=== PATIENT | male | born 1985 | race American Indian/Alaskan Native ===

== ENCOUNTER 2018-08-10 00:31 | Emergency (ER) | payer MEDICAID, OTHER ==
--- NOTE | 2018-08-10 04:22 | C.PDOC ---
History Of Present Illness 33 year old male presents to the ED for evaluation. Patient reports he recently lost his aunt is feeling depressed and wants someone to talk to. Patient denies SI/HI, hallucinations, other medical complaints. Time Seen by Provider: 08/10/18 03:10 Chief Complaint (Nursing): Psychiatric Evaluation History Per: Patient History/Exam Limitations: no limitations Onset/Duration Of Symptoms: Hrs Current Symptoms Are (Timing): Still Present Suicide/Self Injury Attempted (Context): None Associated Symptoms: Depression. denies: Suicidal Thoughts, Suicidal Plan Recent travel outside of the [place]: No Additional History Per: Patient Past Medical History Reviewed: Historical Data, Nursing Documentation, Vital Signs Vital Signs: Last Vital Signs Temp 99.3 F 08/10/18 00:46 Pulse 101 H 08/10/18 00:46 Resp 22 08/10/18 00:46 BP 157/91 H 08/10/18 00:46 Pulse Ox 98 08/10/18 00:46 - Medical History PMH: No Chronic Diseases Surgical History: No Surg Hx Family History: States: Unknown Family Hx - Social History Hx Alcohol Use: No Hx Substance Use: Yes - Immunization History Hx Tetanus Toxoid Vaccination: No Hx Influenza Vaccination: No Hx Pneumococcal Vaccination: No Review Of Systems Constitutional: Negative for: Fever, Chills Cardiovascular: Negative for: Chest Pain Respiratory: Negative for: Shortness of Breath Gastrointestinal: Negative for: Nausea, Vomiting, Abdominal Pain Skin: Negative for: Rash Neurological: Negative for: Weakness, Numbness Psych: Positive for: Depression. Negative for: Suicidal ideation Physical Exam - Physical Exam Appears: Non-toxic, No Acute Distress Skin: Warm, Dry Head: Normacephalic Eye(s): bilateral: Normal Inspection Neck: Supple Chest: Symmetrical Cardiovascular: Rhythm Regular Respiratory: No Rales, No Rhonchi, No Wheezing Gastrointestinal/Abdominal: Soft, No Tenderness, No Guarding, No Rebound Extremity: Bilateral: Atraumatic, Normal Color And Temperature, Normal ROM Neurological/Psych: Oriented x3, Normal Speech, Normal Cognition Gait: Steady ED Course And Treatment O2 Sat by Pulse Oximetry: 98 (ON RA) Pulse Ox Interpretation: Normal Progress Note: Patient was cleared for discharge by dr whitfield Reevaluation Time: 05:27 Reassessment Condition: Improved Disposition Counseled Patient/Family Regarding: Studies Performed, Diagnosis, Need For Followup - Disposition Disposition: HOME/ ROUTINE Disposition Time: 04:28 Condition: FAIR Instructions: Depression, Adult (DC) Forms: [email or web address] (Ukrainian) - Clinical Impression Clinical Impression: Depression - Scribe Statement The provider has reviewed the documentation as recorded by the Scribe Chester Lazo All medical record entries made by the Scribe were at my direction and personally dictated by me. I have reviewed the chart and agree that the record accurately reflects my personal performance of the history, physical exam, medical decision making, and the department course for this patient. I have also personally directed, reviewed, and agree with the discharge instructions and disposition.
[2018-08-10 05:13] VITALS: BP 149/89; PULSE 78; RESP 16; TEMP 97.9
[2018-08-10 05:27] VITALS: O2SAT 98
== END 2018-08-10 06:31 | disposition home or self-care (01) ==
LOC: C.ER 00:31
DX: F32.9 Major depressive disorder, single episode, unspecified (principal)

== ENCOUNTER 2018-08-10 06:55 | Emergency (ER) | payer OTHER ==
[2018-08-10 07:21] VITALS: BP 166/92; PULSE 92; RESP 20; TEMP 98.3; O2SAT 98
--- NOTE | 2018-08-10 08:09 | C.PDOC ---
History Of Present Illness 33 years old male presents to ED for complaints of feeling depressed. Patient reports his aunt last week and since then he has been "very upset." Time Seen by Provider: 08/10/18 07:19 Chief Complaint (Nursing): Psychiatric Evaluation Past Medical History Vital Signs: Last Vital Signs Temp 98.3 F 08/10/18 07:14 Pulse 92 H 08/10/18 07:14 Resp 20 08/10/18 07:14 BP 166/92 H 08/10/18 07:14 Pulse Ox 98 08/10/18 07:14 - Medical History PMH: Denies: Diabetes, Hepatitis, HIV, HTN, Seizures, Sexually Transmitted Disease Family History: States: Unknown Family Hx - Social History Hx Alcohol Use: No Hx Substance Use: Yes - Immunization History Hx Tetanus Toxoid Vaccination: No Hx Influenza Vaccination: No Hx Pneumococcal Vaccination: No ED Course And Treatment O2 Sat by Pulse Oximetry: 98 Disposition - Disposition Forms: [employer] (Turkmen)
--- NOTE | 2018-08-10 08:10 | C.PDOC ---
History Of Present Illness 33 years old male presents to ED for complaints of feeling depressed. Patient reports his aunt last week and since then he has been "very upset." Denies SI, HI, or hallucination. Patient also denies being seen at an ER; however he was seen in this ER yesterday and discharged at 4AM today. Time Seen by Provider: 08/10/18 07:19 Chief Complaint (Nursing): Psychiatric Evaluation History Per: Patient History/Exam Limitations: no limitations Onset/Duration Of Symptoms: Hrs Current Symptoms Are (Timing): Still Present Suicide/Self Injury Attempted (Context): None Modifying Factor(s): None Associated Symptoms: denies: Suicidal Thoughts, Suicidal Plan Involuntary Hold By: None Recent travel outside of the [place]: No Past Medical History Reviewed: Historical Data, Nursing Documentation, Vital Signs Vital Signs: Last Vital Signs Temp 98.3 F 08/10/18 07:14 Pulse 92 H 08/10/18 07:14 Resp 20 08/10/18 07:14 BP 166/92 H 08/10/18 07:14 Pulse Ox 98 08/10/18 07:14 - Medical History PMH: No Chronic Diseases Surgical History: No Surg Hx Family History: States: Unknown Family Hx - Social History Hx Alcohol Use: Yes Hx Substance Use: Yes - Immunization History Hx Tetanus Toxoid Vaccination: No Hx Influenza Vaccination: No Hx Pneumococcal Vaccination: No Review Of Systems Except As Marked, All Systems Reviewed And Found Negative. Constitutional: Negative for: Fever, Chills Gastrointestinal: Negative for: Nausea, Vomiting, Diarrhea Skin: Negative for: Rash Neurological: Negative for: Weakness, Numbness Psych: Positive for: Depression. Negative for: Suicidal ideation Physical Exam - Physical Exam Appears: Non-toxic, No Acute Distress, Unkempt Skin: Normal Color, Warm, Dry, No Rash Head: Atraumatic, Normacephalic Eye(s): bilateral: Normal Inspection, PERRL, EOMI, Other (Conjunctiva clear) Oral Mucosa: Moist Neck: Normal ROM, Supple Chest: Symmetrical Cardiovascular: Rhythm Regular, Other ( Normal S1, S2) Respiratory: Normal Breath Sounds, No Rales, No Rhonchi, No Wheezing, Other (Good air movement, Lungs CTA bilaterally) Gastrointestinal/Abdominal: Soft, No Tenderness Extremity: Normal ROM Extremity: Bilateral: Atraumatic, Normal Color And Temperature, Normal ROM Neurological/Psych: Oriented x3, Normal Speech Gait: Steady ED Course And Treatment O2 Sat by Pulse Oximetry: 98 (RA) Pulse Ox Interpretation: Normal Medical Decision Making Medical Decision Makin:00: * Discussed case with Pauline from [facility] which states patient's case was discussed earlier with Dr. Betancourt which suggested patient is clear to be discharged and there is no reason for admission. * Discussed case with patient which is in agreement. Patient is clear for discharge and will be discharged. Disposition Counseled Patient/Family Regarding: Diagnosis, Need For Followup - Disposition Referrals: [facility] [Outside] [facility] [Outside] [facility] [Outside] Disposition Time: 08:07 Instructions: Depression, Adult (DC) Forms: [facility] (Portuguese), General Discharge Instructions - POA Present On Arrival: None - Clinical Impression Clinical Impression: Depression - Scribe Statement The provider has reviewed the documentation as recorded by the Scribe Bry Potts All medical record entries made by the Scribe were at my direction and personally dictated by me. I have reviewed the chart and agree that the record accurately reflects my personal performance of the history, physical exam, medical decision making, and the department course for this patient. I have also personally directed, reviewed, and agree with the discharge instructions and disposition.
== END 2018-08-10 08:20 | disposition home or self-care (01) ==
LOC: C.ER 06:55
DX: F32.9 Major depressive disorder, single episode, unspecified (principal)